=== PATIENT | male | born 1965 | race Two or more races ===

== ENCOUNTER 2021-05-06 08:36 | Inpatient (IN) | payer OTHER ==
[~2021-05-06] VITALS: Ht 167.6 cm; Wt 127.0 kg
[2021-05-06] MEDS ORDERED: HYZAAR 100-12.1 EACH PO (08:47)
[2021-05-08] MEDS ORDERED: LOVENOX30 MG/0.3 SUBCUTANEO (10:27)
[2021-05-08] MEDS ORDERED: CIPRO500 MG PO (10:29)
[2021-05-08] MEDS ORDERED: ULTRACET PO (10:30)
[2021-05-08] MEDS ORDERED: PROTONIX40 MG PO (10:30)
== END 2021-05-08 13:04 | disposition home or self-care (01) | DRG 355 ==
LOC: ER 08:36 → SURH 13:48 → SEC-K 13:48 → SURH 20:37
PROVIDERS: ADMIT Surgery; ATTEND Surgery
PROC: 0DBU0ZZ Excision of Omentum, Open Approach (ICD-10-PCS; 2021-05-06)
PROC: 0WQF0ZZ Repair Abdominal Wall, Open Approach (ICD-10-PCS; principal; 2021-05-06 15:00)
DX: K42.0 Umbilical hernia with obstruction, without gangrene (principal); Z20.822 Contact with and (suspected) exposure to COVID-19; R10.9 Unspecified abdominal pain; I10 Essential (primary) hypertension; E66.9 Obesity, unspecified

== ENCOUNTER 2023-10-31 21:51 | Emergency (ER) | payer OTHER ==
[~2023-10-31] VITALS: Ht 188 cm; Wt 149.7 kg
[~2023-10-31 21:51] MED LIST: CIPRO500 MG PO; HYZAAR 100-12.1 EACH PO; LOVENOX30 MG/0.3 SUBCUTANEO; PROTONIX40 MG PO; ULTRACET PO
[2023-10-31 23:57] LABS: HEMATOCRIT 46.7 % (39.0-48.0); HEMOGLOBIN 15.9 g/dL (13-16.00); MEAN CELL VOLUME 92.8 fL (80.0-100.00); MEAN CORPUSCULAR HEMOGLOBIN 31.6 pg (27.00-32.0); PLATELET COUNT 183 K/uL (150-450); RED BLOOD COUNT 5.03 M/uL (4.00-6.00); RED CELL DISTRIBUTION WIDTH 13.6 % (11.5-14.5)
[2023-11-01 00:40] LABS: ALBUMIN 3.6 gm/dL (3.4-5.0); BILIRUBIN TOTAL 1.42 mg/dL (0.3-1.2); CALCIUM 8.8 mg/dL (8.5-10.1); CREATININE SERUM 1.33 mg/dL (0.70-1.30); GFR 55.82; GLOBULINA 4.5 G/DL (2.4-3.5); POTASSIUM 4.19 mEq/L (3.5-5.1); TOTAL PROTEIN 8.1 gm/dL (6.4-8.2)
== END 2023-11-01 02:04 | disposition home or self-care (01) ==
LOC: ER 21:52
PROVIDERS: General Practice
DX: K52.9 Noninfective gastroenteritis and colitis, unspecified (principal); R10.9 Unspecified abdominal pain; I10 Essential (primary) hypertension; Z91.013 Allergy to seafood